=== PATIENT | female | born 2000 ===

== ENCOUNTER 2019-06-15 19:16 | Emergency (ER) | payer OTHER ==
[2019-06-15] MEDS ORDERED: Ketorolac 30 MG/ML SDV IVPUSH ONE (19:24)
--- NOTE | 2019-06-15 19:27 | EDM.PDOC ---
ED HPI GENERAL MEDICAL PROBLEM - General Chief Complaint: Fever Stated Complaint: REACTION TO MEDS Time Seen by Provider: 06/15/19 19:21 Source of Information: Reports: Patient, Police, RN Notes Reviewed History Limitations: Reports: No Limitations - History of Present Illness INITIAL COMMENTS - FREE TEXT/NARRATIVE: 19-year-old female presents to emergency department today via law enforcement for a reaction to medications. Known history of syphilis currently underwent treatment today combination penicillin and Rocephin approximately 6 hours after receiving this medication came tachycardic developed a fever and body aches also some mental confusion - Related Data Allergies Allergy/AdvReac Type Severity Reaction Status Date / Time No Known Allergies Allergy Verified 06/15/19 19:22 Past Medical History - Past Health History Medical/Surgical History: Denies Medical/Surgical History Social & Family History - Tobacco Use Smoking Status *Q: Current Every Day Smoker ED ROS GENERAL - Review of Systems Review Of Systems: See Below Constitutional: Reports: Fever, Chills, Weakness, Fatigue HEENT: Reports: No Symptoms Respiratory: Reports: No Symptoms Cardiovascular: Reports: Palpitations GI/Abdominal: Reports: No Symptoms : Reports: No Symptoms Musculoskeletal: Reports: Muscle Pain Skin: Reports: No Symptoms Neurological: Reports: Confusion ED EXAM, GENERAL - Physical Exam Exam: See Below Free Text/Narrative:: General: Female, ill-appearing but not in any distress, alert and oriented x3 HEENT: head is atraumatic normocephalic, eyes pupils equal round reactive to light, sclera clear no conjunctivitis appreciated. Ears tympanic membranes clear and rojas landmarks and light reflex are present bilaterally canals are clear. Nose no septal deviation, nares are clear, no blood present. Mouth mucosa is moist and pink no erythema or exudate noted in soft palate, tongue is midline uvula is midline, dentition is intact. Neck: Supple no thyromegaly no tracheal deviation. Nodes: Cervical nodes subclavicular nodes nontender no palpable lymphadenopathy noted. Lungs: clear to auscultation bilaterally with symmetrical respirations, no adventitious noise appreciated. CV: Regular rate and rhythm S1 and S2 appreciated no murmurs rubs or gallops noted. Abdomen: Soft, nontender, no palpable masses or organomegaly appreciated, no distention no guarding bowel sounds are present, [ Neuro: GCS 15 Skin: Warm and dry, intact Extremities: No lower extremity edema appreciated, pedal pulse is +2. Course - Vital Signs Last Recorded V/S: Last Vital Signs Temp 99.3 F 06/15/19 21:28 Pulse 93 06/15/19 23:03 Resp 14 06/15/19 23:03 BP 84/38 L 06/15/19 23:03 Pulse Ox 99 06/15/19 23:03 - Orders/Labs/Meds Orders: Active Orders 24 hr Category Date Time Status EKG Documentation Completion [RC] ASDIRECTED Care 06/15/19 19:25 Active Peripheral IV Care [RC] . DIRECTED Care 06/15/19 19:25 Active CULTURE BLOOD [BC] Urgent Lab 06/15/19 23:10 Ordered CULTURE BLOOD [BC] Urgent Lab 06/15/19 23:10 Ordered TROPONIN I [CHEM] Stat Lab 06/15/19 22:46 Ordered Iopamidol [Isovue-370 (76%)] Med 06/15/19 21:45 Active 100 ml IV . DIRECTED Norepinephrine 4 MG in D5W @ 2 MCG/MIN(250ml) Med 06/15/19 23:15 Ordered Norepinephrine [Levophed] 4 mg Dextrose 5% in Water 246 ml IV TITRATE Sodium Chloride 0.9% [Normal Saline] 1,000 ml Med 06/15/19 19:30 Active IV ASDIRECTED Sodium Chloride 0.9% [Normal Saline] 100 ml Med 06/15/19 21:45 Active IV ASDIRECTED Sodium Chloride 0.9% [Saline Flush] Med 06/15/19 19:24 Active 10 ml FLUSH ASDIRECTED PRN Vancomycin 1 gm Med 06/15/19 23:04 Ordered Sodium Chloride 0.9% [Normal Saline] 250 ml IV ONETIME Blood Culture x2 Reflex Set [OM.PC] Urgent Oth 06/15/19 23:10 Ordered Peripheral IV Insertion Adult [OM.PC] Urgent Oth 06/15/19 19:24 Ordered EKG 12 Lead [EK] Stat Ther 06/15/19 19:25 Ordered Medication Orders Sodium Chloride (Normal Saline) 1,000 mls @ 500 mls/hr IV ASDIRECTED AUGUSTO Last Admin: 06/15/19 21:32 Dose: 500 mls/hr Infusion: 06/15/19 21:32 Dose: 500 mls/hr Admin: 06/15/19 19:35 Dose: 500 mls/hr Sodium Chloride (Normal Saline) 100 mls @ 3 mls/sec IV ASDIRECTED AUG[place]O Last Admin: 06/15/19 22:21 Dose: 3 mls/sec Norepinephrine Bitartrate 4 mg (/ Dextrose/Water) 250 mls @ 7.5 mls/hr IV TITRATE AUG[place]O; Protocol Vancomycin HCl 1 gm/ Sodium (Chloride) 250 mls @ 150 mls/hr IV ONETIME ONE Stop: 06/16/19 00:43 Iopamidol (Isovue-370 (76%)) 100 ml IV . DIRECTED A[place]O Last Admin: 06/15/19 22:21 Dose: 100 ml Sodium Chloride (Saline Flush) 10 ml FLUSH ASDIRECTED PRN PRN Reason: Keep Vein Open Last Admin: 06/15/19 22:21 Dose: 10 ml Admin: 06/15/19 19:36 Dose: 10 ml Labs: Laboratory Tests 06/15/19 06/15/19 06/15/19 Range/Units 19:24 19:30 19:34 WBC 11.4 H (4.5-11.0) K/uL RBC 4.27 (3.30-5.50) M/uL Hgb 12.1 (12.0-15.0) g/dL Hct 37.8 (36.0-48.0) % MCV 89 (80-98) fL MCH 28 (27-31) pg MCHC 32 (32-36) % Plt Count 223 (150-400) K/uL Neut % (Auto) 94 H (36-66) % Lymph % (Auto) 3 L (24-44) % [place] % (Auto) 3 (2-6) % Eos % (Auto) 0 L (2-4) % Baso % (Auto) 0 (0-1) % D-Dimer, Quantitative (0.0-400.0) ng/mL Sodium 139 L (140-148) mmol/L Potassium 3.5 L (3.6-5.2) mmol/L Chloride 103 (100-108) mmol/L Carbon Dioxide 23 (21-32) mmol/L Anion Gap 16.5 H (5.0-14.0) mmol/L BUN 10 (7-18) mg/dL Creatinine 1.0 (0.6-1.0) mg/dL Est Cr Clr Drug Dosing 89.21 mL/min Estimated GFR (MDRD) > 60 (>60) Glucose 109 H (74-106) mg/dL Lactic Acid (0.4-2.0) mmol/L Calcium 8.6 (8.5-10.1) mg/dL Total Bilirubin 0.3 (0.2-1.0) mg/dL AST 53 H (15-37) U/L ALT 91 H (12-78) U/L Alkaline Phosphatase 128 H (46-116) U/L Creatine Kinase 124 (26-192) U/L Troponin I (0.000-0.056) ng/mL C-Reactive Protein 2.14 H (0.0-0.3) mg/dL Total Protein 7.1 (6.4-8.2) g/dL Albumin 3.0 L (3.4-5.0) g/dL Globulin 4.1 H (2.3-3.5) g/dL Albumin/Globulin Ratio 0.7 L (1.2-2.2) 06/15/19 06/15/19 06/15/19 Range/Units 19:34 19:55 20:50 WBC (4.5-11.0) K/uL RBC (3.30-5.50) M/uL Hgb (12.0-15.0) g/dL Hct (36.0-48.0) % MCV (80-98) fL MCH (27-31) pg MCHC (32-36) % Plt Count (150-400) K/uL Neut % (Auto) (36-66) % Lymph % (Auto) (24-44) % [place] % (Auto) (2-6) % Eos % (Auto) (2-4) % Baso % (Auto) (0-1) % D-Dimer, Quantitative 837 H (0.0-400.0) ng/mL Sodium (140-148) mmol/L Potassium (3.6-5.2) mmol/L Chloride (100-108) mmol/L Carbon Dioxide (21-32) mmol/L Anion Gap (5.0-14.0) mmol/L BUN (7-18) mg/dL Creatinine (0.6-1.0) mg/dL Est Cr Clr Drug Dosing mL/min Estimated GFR (MDRD) (>60) Glucose (74-106) mg/dL Lactic Acid 2.6 H (0.4-2.0) mmol/L Calcium (8.5-10.1) mg/dL Total Bilirubin (0.2-1.0) mg/dL AST (15-37) U/L ALT (12-78) U/L Alkaline Phosphatase (46-116) U/L Creatine Kinase (26-192) U/L Troponin I 0.153 H* (0.000-0.056) ng/mL C-Reactive Protein (0.0-0.3) mg/dL Total Protein (6.4-8.2) g/dL Albumin (3.4-5.0) g/dL Globulin (2.3-3.5) g/dL Albumin/Globulin Ratio (1.2-2.2) Meds: Medications Generic Name Dose Route Start Last Admin Trade Name Freq PRN Reason Stop Dose Admin Sodium Chloride 1,000 mls @ 500 mls/hr 06/15/19 19:30 06/15/19 21:32 Normal Saline IV 500 mls/hr ASDIRECTED [place]UG[place]O Administration Sodium Chloride 100 mls @ 3 mls/sec 06/15/19 21:45 06/15/19 22:21 Normal Saline IV 3 mls/sec ASDIRECTED [place] Administration Norepinephrine Bitartrate 4 mg 250 mls @ 7.5 mls/hr 06/15/19 23:15 / Dextrose/Water IV TITRATE AUG[place]O Protocol 2 MCG/MIN Vancomycin HCl 1 gm/ Sodium 250 mls @ 150 mls/hr 06/15/19 23:04 Chloride IV 06/16/19 00:43 ONETIME ONE Iopamidol 100 ml 06/15/19 21:45 06/15/19 22:21 Isovue-370 (76%) IV 100 ml . DIRECTED A[place]O Administration Sodium Chloride 10 ml 06/15/19 19:24 06/15/19 22:21 Saline Flush FLUSH 10 ml ASDIRECTED PRN Administration Keep Vein Open Discontinued Medications Generic Name Dose Route Start Last Admin Trade Name Freq PRN Reason Stop Dose Admin Lactated Ringer's 1,000 mls @ 999 mls/hr 06/15/19 21:29 06/15/19 21:33 Ringers, Lactated IV 06/15/19 22:29 999 mls/hr BOLUS ONE Administration Ketorolac Tromethamine 30 mg 06/15/19 19:24 06/15/19 19:33 Toradol IVPUSH 06/15/19 19:25 30 mg ONETIME ONE Administration Lorazepam 1 mg 06/15/19 19:52 06/15/19 20:00 Ativan IVPUSH 06/15/19 19:53 1 mg ONETIME ONE Administration Departure - Departure Time of Disposition: 23:15 Disposition: DC/Tfer to Acute Hospital 02 Condition: Fair Clinical Impression: Elevated troponin, Jarisch Herxheimer reaction - Discharge Information Referrals: PCP,None [Primary Care Provider] - Forms: ED Department Discharge - My Orders Last 24 Hours: My Active Orders 06/15/19 19:24 Sodium Chloride 0.9% [Saline Flush] 10 ml FLUSH ASDIRECTED PRN Peripheral IV Insertion Adult [OM.PC] Urgent 06/15/19 19:25 EKG Documentation Completion [RC] ASDIRECTED Peripheral IV Care [RC] . DIRECTED EKG 12 Lead [EK] Stat 06/15/19 19:30 Sodium Chloride 0.9% [Normal Saline] 1,000 ml IV ASDIRECTED 06/15/19 21:45 Iopamidol [Isovue-370 (76%)] 100 ml IV . DIRECTED Sodium Chloride 0.9% [Normal Saline] 100 ml IV ASDIRECTED 06/15/19 22:46 TROPONIN I [CHEM] Stat 06/15/19 23:04 Vancomycin 1 gm Sodium Chloride 0.9% [Normal Saline] 250 ml IV ONETIME 06/15/19 23:10 CULTURE BLOOD [BC] Urgent CULTURE BLOOD [BC] Urgent Blood Culture x2 Reflex Set [OM.PC] Urgent 06/15/19 23:15 Norepinephrine 4 MG in D5W @ 2 MCG/MIN(250ml) Norepinephrine [Levophed] 4 mg Dextrose 5% in Water 246 ml IV TITRATE - Assessment/Plan Last 24 Hours: My Active Orders 06/15/19 19:24 Sodium Chloride 0.9% [Saline Flush] 10 ml FLUSH ASDIRECTED PRN Peripheral IV Insertion Adult [OM.PC] Urgent 06/15/19 19:25 EKG Documentation Completion [RC] ASDIRECTED Peripheral IV Care [RC] . DIRECTED EKG 12 Lead [EK] Stat 06/15/19 19:30 Sodium Chloride 0.9% [Normal Saline] 1,000 ml IV ASDIRECTED 06/15/19 21:45 Iopamidol [Isovue-370 (76%)] 100 ml IV . DIRECTED Sodium Chloride 0.9% [Normal Saline] 100 ml IV ASDIRECTED 06/15/19 22:46 TROPONIN I [CHEM] Stat 06/15/19 23:04 Vancomycin 1 gm Sodium Chloride 0.9% [Normal Saline] 250 ml IV ONETIME 06/15/19 23:10 CULTURE BLOOD [BC] Urgent CULTURE BLOOD [BC] Urgent Blood Culture x2 Reflex Set [OM.PC] Urgent 06/15/19 23:15 Norepinephrine 4 MG in D5W @ 2 MCG/MIN(250ml) Norepinephrine [Levophed] 4 mg Dextrose 5% in Water 246 ml IV TITRATE Plan: Assessment Acuity = acute Site and laterality = elevated troponin complicated in a patient with known history of syphilis with initial treatment starting today suspicious for Jarisch Herxheimer reaction Etiology = unknown etiology Manifestations = tachycardia now resolved, fever now resolved remains hypotensive Location of injury = Home Lab values = WBC elevated at 11.4 consistent leukocytosis, d-dimer elevated 837 of uncertain significance lactic acid elevated 2.6 consistent lactic acidosis AST elevated 53 LT elevated 91 consistent with elevated liver enzymes troponin elevated 0.153 of uncertain significance CRP elevated 2.14 CT scan of the chest shows no pulmonary embolism EKG demonstrates a sinus tachycardia no ST elevations or depressions, blood cultures are pending Plan Thus far the emergency department she has received 2 L of fluid, vancomycin was initiated she had received one dose of penicillin 1 g of Rocephin prior to admission to the emergency department Levothroid drip has been initiated to help maintain blood pressure. Called discussed the case with Dr. Chew hospitalist on-call at [address] he kindly accepted the patient in transport she'll be transported via EMS ground This note was dictated using [employer] voice recognition software please call with any questions on syntax or grammar.
[2019-06-15] MEDS: Sodium Chloride 0.9% 1,000 ML IV SCH ×2 (19:35→21:32)
[2019-06-15] MEDS: Sodium Chloride 0.9% 10 ML Syringe FLUSH PRN ×2 (19:36→22:21)
[2019-06-15] MEDS ORDERED: LORazepam 2 MG/ML SDV IVPUSH ONE (19:52)
[2019-06-15] MEDS ORDERED: Lactated Ringers 1,000 ML IV ONE (21:29)
[2019-06-15] MEDS ORDERED: Sodium Chloride 0.9% 100 ML IV SCH (21:45)
[2019-06-15] MEDS ORDERED: Iopamidol 755 Mg/ML 100 ML Bottle IV SCH (21:45)
--- NOTE | 2019-06-15 22:39 | CRLCT ---
INDICATION: Chest pain and hypertension TECHNIQUE: CT chest PE was acquired with 100 cc Isovue-300 intravenous contrast. COMPARISON: None. FINDINGS: Heart and vasculature: Contrast opacification of the pulmonary arterial tree is adequate. No sign of pulmonary embolism. Heart size is normal. Thoracic aorta and pulmonary artery are normal in caliber. Lungs and pleural: No pleural effusion or pneumothorax. Discoid atelectasis left lower lobe. Lymph nodes/mediastinum: No mediastinal, hilar, or axillary adenopathy. Thyroid gland is normal. Chest wall: No masses. Upper abdomen: Normal. Bones: Unremarkable for age. IMPRESSION: No evidence of pulmonary embolus. Minimal discoid atelectasis left lower lobe, essentially unremarkable CTA chest. Please note that all CT scans at this facility use dose modulation, iterative reconstruction, and/or weight-based dosing when appropriate to reduce radiation dose to as low as reasonably achievable. Dictated by Frederic Gates MD @ Jun 15 2019 10:31PM Signed by Dr. Frederic Gates @ Jun 15 2019 10:37PM
[2019-06-15] MEDS ORDERED: Norepinephrine 4 MG in Dextrose 5% in Water 246 ML IV SCH ×2 (23:15)
== END 2019-06-16 00:35 ==
LOC: JP.ED 19:16
DX: R68.89 Other general symptoms and signs (principal); R79.89 Other specified abnormal findings of blood chemistry; F17.200 Nicotine dependence, unspecified, uncomplicated
CPT/HCPCS: 36415; 71275; 80053; 80305; 81001; 82550; 83605; 84484; 85025; 85379; 86140; 87040; 93005; 96361; 96365; 96368; 96375; 99284; J1885; J2060; J3370; J7030; J7050; J7060; J7120; Q9967